=== PATIENT | female | born 1990 | race Caucasian/White ===

== ENCOUNTER 2021-01-14 17:10 | Emergency (ER) | payer BC, OTHER ==
[2021-01-14] MEDS: Magnesium Sulfate/Water 2 GM in Premix Bag 1 BAG IV ONE (17:37)
--- NOTE | 2021-01-14 17:38 | EDM.PDOC ---
ED HPI GENERAL MEDICAL PROBLEM - General Chief Complaint: General Stated Complaint: muscle spasms; dizziness Time Seen by Provider: 01/14/21 17:16 Source of Information: Reports: Patient History Limitations: Reports: Other (Patient current condition, speech is difficult.) - History of Present Illness INITIAL COMMENTS - FREE TEXT/NARRATIVE: This patient is a 30 year old female that presents to the ER via private vehicle with . reports the patient has low magnesium and is complaining of muscle cramping and had to be carried to vehicle. The patient presents with her legs to abdomen, arms flexed to torso with tetany of hands inward. Her jaw is locked and she is speaking. Her speaking is difficult to understand due to her not moving her jaw. Patient is able to report she has a history of low magnesium. She reports that this has happened to her twice in the past, same symptoms, went to ER and had low magnesium and treated. She reports she usually takes a multivitamin daily with magnesium, but she has not taken the past 3 days. She denies seizures, urinary/bowel incontinence. She is alert and oriented. The patient and reports that at 10am this morning she woke with slurred speech and tingling in her face. Patient thought it was low blood sugar, so she sent someone for food, they returned and she ate around noon. Patient reports it did not improve. She reports then she started to have muscle spasms all over body with pain. She reports then she was unable to walk or talk. So they then came to the ER at 1715. Onset: Today Onset Date: 01/14/21 Onset Time: 15:00 Duration: Day(s): (1), Getting Worse Quality: Reports: Other ("cramping") Severity: Severe Improves with: Reports: None Worsens with: Reports: None Associated Symptoms: Denies: Confusion, Chest Pain, Cough, cough w sputum, Diaphoresis, Fever/Chills, Headaches, Loss of Appetite, Malaise, Nausea/Vomiting, Rash, Seizure, Shortness of Breath, Syncope, Weakness - Related Data Allergies Allergy/AdvReac Type Severity Reaction Status Date / Time No Known Allergies Allergy Verified 01/14/21 17:21 Home Meds: Home Meds Multivitamin 1 tab PO DAILY 01/14/21 [History] Pantoprazole Sodium [Protonix] 40 mg PO DAILY 01/14/21 [History] Phentermine HCl 37.5 mg PO DAILY 01/14/21 [History] Spironolactone [Aldactone] 100 mg PO DAILY 01/14/21 [History] Topiramate 25 mg PO BID 01/14/21 [History] ED ROS GENERAL - Review of Systems Review Of Systems: See Below Constitutional: Reports: No Symptoms HEENT: Reports: No Symptoms Respiratory: Reports: No Symptoms Cardiovascular: Reports: No Symptoms Endocrine: Reports: No Symptoms GI/Abdominal: Reports: No Symptoms : Reports: No Symptoms Musculoskeletal: Reports: Muscle Pain ("cramps all over"), Muscle Stiffness (all over) Skin: Reports: No Symptoms Neurological: Reports: No Symptoms. Denies: Seizure Psychiatric: Reports: No Symptoms Hematologic/Lymphatic: Reports: No Symptoms Immunologic: Reports: No Symptoms ED EXAM, GENERAL - Physical Exam Exam: See Below Exam Limited By: No Limitations General Appearance: Alert, WD/WN, Anxious, Mild Distress Eye Exam: Bilateral Eye: Normal Inspection, PERRL Ears: Normal External Exam, Normal Canal, Hearing Grossly Normal, Normal TMs Ear Exam: Bilateral Ear: Auricle Normal, Canal Normal, TM normal Nose: Normal Inspection, Normal Mucosa, No Blood Throat/Mouth: Normal Inspection, Normal Lips, Normal Teeth, Normal Gums, Normal Oropharynx, Normal Voice, No Airway Compromise, Other (lock jaw) Head: Atraumatic, Normocephalic Neck: Normal Inspection, Supple, Non-Tender Respiratory/Chest: No Respiratory Distress, Lungs Clear, Normal Breath Sounds, No Accessory Muscle Use Cardiovascular: Normal Peripheral Pulses, Regular Rate, Rhythm, No Murmur Peripheral Pulses: 2+: Radial (L), Radial (R), Posterior Tibial (L), Posterior Tibial (R), Dorsalis Pedis (L), Dorsalis Pedis (R) GI/Abdominal: Soft, Non-Tender Back Exam: Normal Inspection Extremities: Other (kness flexed to abdomen.arms flexed towards torso. ) Neurological: Alert, Oriented, Other (speech difficult to understand due to lock jaw. muscle cramping) Psychiatric: Anxious Skin Exam: Warm, Dry, Intact, Normal Color, No Rash Lymphatic: No Adenopathy #1 Interpretation EKG Date: 01/14/21 Time: 17:37 Rhythm: NSR Rate (Beats/Min): 88 [place]: Normal P-Wave: Present QRS: Normal ST-T: Normal QT: Normal Comparison: NA - No Prior EKG Course - Vital Signs Last Recorded V/S: Last Vital Signs Temp 97.9 F 01/14/21 18:52 Pulse 83 01/14/21 18:52 Resp 15 01/14/21 18:52 BP 131/85 01/14/21 18:52 Pulse Ox 100 01/14/21 18:52 - Orders/Labs/Meds Orders: Active Orders 24 hr Category Date Time Status Head wo Cont [CT] Stat Exams 01/14/21 18:05 Taken Magnesium Sulfate/Water [Magnesium Sulfate in Water 2 Med 01/14/21 17:31 Active GM/50 ML] 2 gm Premix Bag 1 bag IV ONETIME Medication Orders Magnesium Sulfate 2 gm/ Premix 50 mls @ 25 mls/hr IV ONETIME ONE Stop: 01/14/21 19:30 Last Admin: 01/14/21 17:37 Dose: 100 mls/hr Documented by: IZAIAH Labs: Laboratory Tests 01/14/21 01/14/21 Range/Units 17:30 17:30 WBC 7.7 (4.0-11.0) 10^3/uL RBC 4.53 (4.00-5.50) x10^6/uL Hgb 14.4 (12.0-16.0) g/dL Hct 42.4 (37.0-47.0) % MCV 93.6 (83.0-97.0) fL MCH 31.8 (27.0-32.0) pg MCHC 34.0 (32.0-36.0) g/dL RDW Coeff of Mary 12.7 (11.0-15.0) % Plt Count 265 (150-400) 10^3/uL Immature Gran % (Auto) 0.0 (0.0-4.9) % Neut % (Auto) 56.5 (41-71) % Lymph % (Auto) 32.0 (24-44) % Greer % (Auto) 7.0 (0-10) % Eos % (Auto) 4.0 (0-6) % Baso % (Auto) 0.5 (0-1) % Neut # (Auto) 4.35 (1.80-8.00) x10^3/uL Lymph # (Auto) 2.47 (0.60-5.00) 10^3/uL Greer # (Auto) 0.54 (0.00-1.50) 10^3/uL Eos # (Auto) 0.31 (0.00-1.50) 10^3/uL Baso # (Auto) 0.04 (0.00-0.50) 10^3/uL Immature Gran # (Auto) 0.00 (0.00-0.49) 10^3/uL Sodium 144 (136-145) mEq/L Potassium 4.4 (3.5-5.0) mEq/L Chloride 106 (98-106) mEq/L Carbon Dioxide 27 (21-32) mmol/L BUN 8 (7-18) mg/dL Creatinine 1.1 H (0.6-1.0) mg/dL Est Cr Clr Drug Dosing 69.37 mL/min Estimated GFR (MDRD) 58 L (>=60) mL/min Glucose 93 (75-99) mg/dL Calcium 8.9 (8.4-10.1) mg/dL Magnesium 1.9 (1.8-2.4) mg/dL Total Bilirubin 0.2 (0.0-1.0) mg/dL AST 24 (15-37) U/L ALT 54 (12-78) U/L Alkaline Phosphatase 96 (46-116) U/L Creatine Kinase 106 (21-215) U/L Total Protein 7.7 (6.4-8.2) g/dL Albumin 3.9 (3.4-5.0) g/dL Meds: Medications Generic Name Dose Route Start Last Admin Trade Name Freq PRN Reason Stop Dose Admin Magnesium Sulfate 2 gm/ Premix 50 mls @ 25 mls/hr 01/14/21 17:31 01/14/21 17:37 IV 01/14/21 19:30 100 mls/hr ONETIME ONE Administration Discontinued Medications Generic Name Dose Route Start Last Admin Trade Name Freq PRN Reason Stop Dose Admin Lorazepam 1 mg 01/14/21 18:10 01/14/21 18:13 Lorazepam 2 Mg/Ml Syringe IVPUSH 01/14/21 18:11 1 mg ONETIME ONE Administration Lorazepam 0.5 mg 01/14/21 19:01 01/14/21 19:05 Lorazepam 2 Mg/Ml Syringe IVPUSH 01/14/21 19:02 0.5 mg ONETIME ONE Administration - Radiology Interpretation Free Text/Narrative:: Head CT: No acute findings. CT Results Date: 01/14/21 CT Results Time: :19 - Re-Assessments/Exams Free Text/Narrative Re-Assessment/Exam: 01/14/21 17:25 Will draw labs including Magnesium level. Discussed with Jerry if can go ahead and give Mg IV. He reports to do so 2g over 30 minutes, if corrects may disch arge home to take own MG at home as she has been doing. 01/14/21 18:05 Labs reviewed and unremarkable. Magnesium running and near completion. Patient reports she is still having cramping throughout body. Patient speech is forced, slurred difficult to understand. Stroke score 3 with mild aphasia, dysarthria. I have ordered a head ct. Her bilateral hands remains tetany curled inward. I pulled Jerry up on camera, Dr. Lantigua has seen patient. At this time, patient reports now having heaviness in her chest as well. We discussed all results as well. He reports to give the patient Ativan, he reports may give Ativan as needed for her symptoms. Patient has no unilateral/focal weaknesses. She is alert and oriented. 01/14/21 18:34 Patient able to use bedpan with assistance, still has tetany in hands. She does not appear as uncomfortable as initial presentation. 01/14/21 18:58 This patient has returned from ct. Her tetany is significantly improved, her speech is improved. Not forced speech, no slurred. She is alert and oriented. No unilateral weakness. She reports that she feels much better. She reports some mild spasm to arms bilateral and mild numbness of face, but much improved. I will give more Lorazepam, smaller dose. If ct is normal, will discharge. Patient does not appear as anxious. 01/14/21 19:19 Patient reports she feels good and is ready for discharge. Departure - Departure Time of Disposition: 19:19 Disposition: Home, Self-Care 01 Condition: Fair Clinical Impression: Muscle spasm - Discharge Information *PRESCRIPTION DRUG MONITORING PROGRAM REVIEWED*: Not Applicable *COPY OF PRESCRIPTION DRUG MONITORING REPORT IN PATIENT BERNARDO: Not Applicable Instructions: Muscle Cramps and Spasms, [id number] Referrals: Celena Dooley MD [Primary Care Provider] - Forms: ED Department Discharge Additional Instructions: Followup with your primary care provider Return to the nearest ER for worsening of condition or any emergent concerns Take your multivitamin as you have been Increase water intake Sepsis Event Note (ED) - Evaluation Sepsis Screening Result: No Definite Risk - Focused Exam Vital Signs: Vital Signs Temp Pulse Resp BP Pulse Ox 01/14/21 18:52 97.9 F 83 15 131/85 100 01/14/21 17:13 98.7 F 94 16 138/95 H 99 - My Orders Last 24 Hours: My Active Orders 01/14/21 17:31 Magnesium Sulfate/Water [Magnesium Sulfate in Water 2 GM/50 ML] 2 gm Premix Bag 1 bag IV ONETIME 01/14/21 18:05 Head wo Cont [CT] Stat - Assessment/Plan Last 24 Hours: My Active Orders 01/14/21 17:31 Magnesium Sulfate/Water [Magnesium Sulfate in Water 2 GM/50 ML] 2 gm Premix Bag 1 bag IV ONETIME 01/14/21 18:05 Head wo Cont [CT] Stat Plan: PLEASE SEE RN NOTE FOR PFSH.
[2021-01-14] MEDS: LORazepam 2 MG/ML Syringe IVPUSH ONE ×2 (18:13→19:05)
== END 2021-01-14 20:00 | disposition home or self-care (01) ==
LOC: CC.ED 17:10
DX: M62.838 Other muscle spasm (principal); Z79.899 Other long term (current) drug therapy
CPT/HCPCS: 36415; 70450; 80053; 82550; 83735; 85025; 93005; 96365; 96374; 96376; 99285; J2060; J3475

== ENCOUNTER 2021-01-15 08:36 | Emergency (ER) | payer BC, OTHER ==
[2021-01-15 09:05] LABS: CHLORIDE,CL 108 mEq/L (98-106); SODIUM,NA 144 mEq/L (136-145)
[2021-01-15] MEDS: LORazepam 2 MG/ML Syringe IVPUSH ONE (09:51)
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
[2021-01-15 11:29] LABS: MDMA (ECSTASY), URINE NEGATIVE (NEGATIVE); METHADONE,URINE NEGATIVE (NEGATIVE); METHAMPHETAMINES,URINE NEGATIVE (NEGATIVE); OPIATES,URINE NEGATIVE (NEGATIVE)
[2021-01-15 11:30] LABS: AMPHETAMINES,URINE NEGATIVE (NEGATIVE); BARBITURATES,URINE NEGATIVE (NEGATIVE); BENZODIAZEPINE,URINE POSITIVE (NEGATIVE); OXYCODONE,URINE NEGATIVE (NEGATIVE); PHENCYCLIDINE,URINE NEGATIVE (NEGATIVE); TCA,URINE NEGATIVE (NEGATIVE)
[2021-01-15] MEDS: Take Home: LORazepam 0.5 MG Tab, 2 Tab Pack PO ONE (11:43)
[2021-01-15] MEDS: LORazepam 0.5 MG Tab PO ONE (11:50)
== END 2021-01-15 12:45 | disposition home or self-care (01) ==
LOC: CC.ED 08:36
DX: M62.838 Other muscle spasm (principal); Z79.899 Other long term (current) drug therapy; Z72.0 Tobacco use
CPT/HCPCS: 36415; 80053; 80305; 81001; 81025; 83735; 85025; 96374; 99283; A9270; J2060

== ENCOUNTER 2021-07-10 16:26 | Emergency (ER) | payer BC ==
[2021-07-10] MEDS: LORazepam 2 MG/ML Syringe IVPUSH ONE (16:58)
[2021-07-10 17:13] LABS: CHLORIDE,CL 103 mEq/L (98-106); SODIUM,NA 141 mEq/L (136-145)
== END 2021-07-10 18:38 | disposition home or self-care (01) ==
LOC: CC.ED 16:26
DX: F44.9 Dissociative and conversion disorder, unspecified (principal); Z72.0 Tobacco use
CPT/HCPCS: 36415; 80053; 83735; 85025; 96374; 99284-25; J2060